=== PATIENT | female | born 2000 | race Hispanic/Latino ===

== ENCOUNTER 2022-09-07 17:34 | Emergency (ER) | payer SELFPAY ==
[2022-09-07 18:41] LABS: Urine Blood Negative (Negative); Urine Glucose Negative (Negative); Urine Protein Negative (Negative); Urine Specific Gravity 1.015 (1.005-1.030); Urine pH 7.5 (5.0-7.0)
[2022-09-07 18:46] LABS: Urine Specific Gravity/Preg 1.015 (1.005-1.030)
[2022-09-07 18:46] LABS: Absolute Lymphocytes (CBC) 2.9 K/uL (0.7-4.9); Hematocrit 40.5 % (36.0-45.0); Lymphocytes % 22.4 % (15.3-44.8); MCV 90.4 fL (80-100); MPV 7.8 fL (7.6-11.3); RBC Red Blood Cell Count 4.48 M/uL (3.86-4.86)
[2022-09-07 19:04] LABS: Albumin 3.7 g/dL (3.4-5.0); Bilirubin Total 0.2 mg/dL (0.2-1.0); Protein, Total 8.2 g/dL (6.4-8.2)
[2022-09-07 19:06] LABS: Potassium 3.6 mmol/L (3.5-5.1)
--- NOTE | 2022-09-07 19:39 | RAD REPORT ---
EXAM DESCRIPTION: US - Transvaginal OB - 09/07/2022 7:22 pm CLINICAL HISTORY: Abd cramping, COMPARISON: No comparisons FINDINGS: A single gestational sac is seen within the uterus. The shape of the sac is within normal limits for gestational age. Within the sac is a single pole with crown-rump length of 6 mm, cor relating to estimated gestational age of 6 weeks 4 days. Estimated date of delivery is 04/29/2023. Heart rate is 129 BPM. The placenta is not yet developed due to early gestational age. The maternal adnexa and ovaries are within normal limits. Normal Doppler blood flow was demonstrated to both ovaries. IMPRESSION: Single live early intrauterine gestation with estimated gestational age of 6 weeks 4 day s, MAGAN 04/29/2023. No unusual or unexpected finding.
--- NOTE | 2022-09-07 19:54 | EDPHYS ---
Physician Documentation [facility] Name: Gus Berry Age: 21 yrs Sex: Female : 2000 Arrival Date: 09/07/2022 Time: 17:35 Bed 12 Private MD: ED Physician Qasim Valencia HPI: 09/07 19:21 This 21 yrs old Female presents to ER via Ambulatory with complaints of kb Abdominal Pain, Migraine. 19:21 The patient presents with abdominal pain in the lower abdomen. Onset: The kb symptoms/episode began/occurred 1 week(s) ago. The symptoms do not radiate. Associated signs and symptoms: Pertinent positives: nausea, vomiting, and diarrhea, headache. The symptoms are described as intermittent. Modifying factors: The symptoms are alleviated by nothing, the symptoms are aggravated by nothing. Severity of pain: At its worst the pain was moderate in the emergency department the pain is unchanged. The patient has not experienced similar symptoms in the past. The patient has not recently seen a physician. Pt reports lower abd pain, diarrhea, nausea and vomiting and headache that has been going on for one week. Denies nausea and headache at this time. Reports slight cramping pain across lower abd. . 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 - Social history:: Smoking status: Patient denies any tobacco usage or history of. ROS: 19:20 Constitutional: Negative for fever, chills, and weight loss. kb 19:20 Abdomen/GI: Positive for nausea, vomiting, diarrhea, abdominal cramps. 19:20 : Positive for vaginal bleeding. 19:20 Neuro: Positive for headache. 19:20 All other systems are negative. Exam: 19:21 Constitutional: This is a well developed, well nourished patient who is awake, alert, kb and in no acute distress. Head/Face: Normocephalic, atraumatic. ENT: Moist Mucous membranes Cardiovascular: Regular rate and rhythm with a normal S1 and S2. No gallops, murmurs, or rubs. No pulse deficits. Respiratory: Respirations even and unlabored. No increased work of breathing. Talking in full sentences Abdomen/GI: Soft, non-tender. No distention Skin: Warm, dry with normal turgor. Normal color. MS/ Extremity: Pulses equal, no cyanosis. Neurovascular intact. Full, normal range of motion. Neuro: Awake and alert, GCS 15, oriented to person, place, time, and situation. Moves all extremities. Normal gait. Psych: Awake, alert, with orientation to person, place and time. Behavior, mood, and affect are within normal limits. Vital Signs: 18:18 BP 130 / 75; Pulse 97; Resp 18; Temp 98.5; Pulse Ox 100% ; Weight 83.91 kg; Height 5 kb3 ft. 4 in. (162.56 cm); Pain 5/10; 18:18 Body Mass Index 31.75 (83.91 kg, 162.56 cm) kb3 MDM: 18:17 Patient medically screened. kb 19:21 Data reviewed: vital signs, nurses notes. Data interpreted: Pulse oximetry: on room air kb is 100 %. Interpretation: normal. Counseling: I had a detailed discussion with the patient and/or guardian regarding: the historical points, exam findings, and any diagnostic results supporting the discharge/admit diagnosis, lab results, radiology results, the need for outpatient follow up, an OB/Gyne specialist, to return to the emergency department if symptoms worsen or persist or if there are any questions or concerns that arise at home. 19:23 ED course: Informed pt of . Pt's last "normal" menstrual cycle was 08/05/22. kb States she has been spotting for the last 4 days. . 09/07 18:25 Order name: CBC with Diff; Complete Time: 18:50 kb 09/07 18:25 Order name: CMP; Complete Time: 19:20 kb 09/07 18:25 Order name: Lipase; Complete Time: 19:20 kb 09/07 18:41 Order name: HCG-Quantitative; Complete Time: 19:45 kb 09/07 18:41 Order name: Abo/rh Typing; Complete Time: 19:53 kb 09/07 18:41 Order name: Urine Dipstick-Ancillary; Complete Time: 18:50 EDMS 09/07 18:25 Order name: IV Saline Lock; Complete Time: 18:57 kb 09/07 18:25 Order name: Labs collected and sent; Complete Time: 18:57 kb 09/07 18:25 Order name: Urine Dipstick-Ancillary (obtain specimen); Complete Time: 18:44 kb 09/07 18:25 Order name: Urine Test (obtain specimen); Complete Time: 18:44 kb 09/07 18:42 Order name: US Transvaginal Ob; Complete Time: 19:39 kb 09/07 18:43 Order name: Urine --Ancillary (enter results); Complete Time: 18:50 ds4 Administered Medications: No medications were administered Disposition Summary: 09/07/22 19:53 Discharge Ordered Location: Home kb Condition: Stable kb Diagnosis - Threatened kb Followup: kb - With: Emergency Department - When: As needed - Reason: Worsening of condition Followup: kb - With: Private Physician - When: 2 - 3 days - Reason: Recheck today's complaints, Continuance of care, Re-evaluation by your physician Discharge Instructions: - Discharge Summary Sheet kb - Threatened Miscarriage, [id number] kb - Vaginal Bleeding During , First Trimester, [id number] kb Forms: - Medication Reconciliation Form kb - Thank You Letter kb - Antibiotic Education kb - Prescription Opioid Use kb Addendum: 09/11/2022 13:54 Co-signature as Attending Physician, Qasim Valencia MD. r n Signatures: Dispatcher [employer] EDLuann Spann, MECHANICAL DESIGN ENGINEER FACILITIES-C MECHANICAL DESIGN ENGINEER FACILITIES-Ckb Qasim Valencia MD MD rn Bradberry, Kelly, RN RN kb3 Corrections: (The following items were deleted from the chart) 09/07 18:41 18:26 Abdomen Pelvis W Con+CT.RAD.BRZ ordered. EDMS EDMS 18:42 18:33 Stone Protocol+CT.RAD.BRZ ordered. EDMS EDMS
--- NOTE | 2022-09-07 19:54 | ER ---
Nurse's Notes [facility] Name: Gus Berry Age: 21 yrs Sex: Female : 2000 Arrival Date: 09/07/2022 Time: 17:35 Bed 12 Private MD: Diagnosis: Threatened Presentation: 09/07 18:18 Chief complaint: Patient states: lower abdominal pain x1 week with N/V/D. Denies fever. kb3 Coronavirus screen: Vaccine status: Patient reports being unvaccinated. Ebola Screen: Patient negative for fever greater than or equal to 101.5 degrees Fahrenheit, and additional compatible Ebola Virus Disease symptoms Patient denies exposure to infectious person. Patient denies travel to an Ebola-affected area in the 21 days before illness onset. Initial Sepsis Screen: Does the patient meet any 2 criteria? No. Patient's initial sepsis screen is negative. Does the patient have a suspected source of infection? No. Patient's initial sepsis screen is negative. Risk Assessment: Do you want to hurt yourself or someone else? Patient reports no desire to harm self or others. Onset of symptoms was August 31, 2022. 18:18 Method Of Arrival: Ambulatory kb3 18:18 Acuity: DARÍO 3 kb3 Triage Assessment: 18:19 General: Appears in no apparent distress. Behavior is calm, cooperative. Pain: kb3 Complains of pain in right lower quadrant and left lower quadrant. GI: Reports lower abdominal pain, diarrhea, nausea, vomiting. 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 - Social history:: Smoking status: Patient denies any tobacco usage or history of. Vital Signs: 18:18 BP 130 / 75; Pulse 97; Resp 18; Temp 98.5; Pulse Ox 100% ; Weight 83.91 kg; Height 5 kb3 ft. 4 in. (162.56 cm); Pain 5/10; 18:18 Body Mass Index 31.75 (83.91 kg, 162.56 cm) kb3 ED Course: 17:35 Patient arrived in ED. rg4 17:42 [facility]C [facility] kb 17:42 Qasim Valencia MD is Attending Physician. kb 18:19 Triage completed. kb3 18:19 Arm band placed on right wrist. kb3 18:57 Inserted saline lock: 22 gauge in left antecubital area, using aseptic technique. Blood zm collected. 18:57 Abo/rh Typing Sent. zm 18:57 HCG-Quantitative Sent. zm 18:57 CMP Sent. zm 18:57 Lipase Sent. zm 19:23 US Transvaginal Ob In Process Unspecified. EDMS Administered Medications: No medications were administered Outcome: 19:53 Discharge ordered by . kb 20:01 Patient left the ED. kb Signatures: Dispatcher [employer] EDMS Luann Fitch FNP-C FNP-Lashawn Francois rg4 Kassandra Sawant Ann Donato, RN RN kb3
[2022-09-07 20:11] VITALS: BP 130/75; TEMP 98.5; O2SAT 100
== END 2022-09-07 20:01 | disposition home or self-care (01) ==
LOC: ER 17:34
DX: O20.0 Threatened abortion (principal)
CPT/HCPCS: 36415; 76817; 80053; 81003; 81025; 83690; 84702; 85025; 86900; 86901; 99283